=== PATIENT | male | born 1960 | race Caucasian/White ===

== ENCOUNTER → 2024-11-15 | Outpatient (CLI) | payer OTHER ==
--- NOTE | 2024-11-15 11:52 | CTL ---
EXAMINATION TYPE: CT Low Dose Lung DATE OF EXAM: 11/15/2024 11:10 AM COMPARISON: None. CLINICAL INDICATION: Male, 64 years old with history of Z12.2 SCREENING F17.210 CURRENT SMOKER; Curre nt smoker, hx of 1/2 PPD x50yrs., history of tobacco use. TECHNIQUE: Multiple axial non-contrast scans were obtained from approximately the lung apices through the upper abdomen. Coronal and sagittal reformatted images were obtained. Low dose technique was uti lized. MIP were created on a separate workstation and submitted for review. CT DLP: 69.0 mGycm, Automated exposure control for dose reduction was used. CT Contrast: Contrast used: None Oral contrast used: None FINDINGS: Lack of intravenous contrast and low dose technique limits the evaluation of the vascular and soft ti ssue structures. LUNGS: No evidence of pulmonary fibrosis. No evidence of focal consolidation, pneumothorax or pleural effusion. Centrilobular emphysema changes. Air cysts in the right lung base noted. Nodules: RUL: None. RML: Intrafissural lymph node series 5 image 46 RLL: Intrafissural lymph node series 5 image 44.. ELVIS: None. LLL: Calcified granuloma series 7 image 45.. AIRWAY: Patent and unremarkable. HEART: Size within normal limits. No significant coronary artery calcifications. MEDIASTINUM: No gross evidence of adenopathy. VASCULATURE: No aortic aneurysm. MUSCULOSKELETAL: No acute osseous abnormalities SOFT TISSUES/LYMPH NODES: Unremarkable. LOWER NECK: No significant findings. UPPER ABDOMEN: No significant findings. IMPRESSION: 1. No clinically significant pulmonary nodules. 2. Mild emphysema. CT LUNG RAD AND CT CHEST RECOMMENDATION: Lung-Rad 2 Benign Appearance or Behavior: Continue annual sc reening with LDCT in 12 months. S Modifier (other clinically significant findings): None Recommend smoking cessation (if current smoker), or continuation of smoking cessation (if prior smoke r). Annual screening for lung cancer with low-dose computed tomography is recommended in adults ages 55 to 77 years who have a 30 pack-year smoking history and currently smoke or have quit within the pa st 15 years. Screening should be discontinued once a person has not smoked for 15 years or develops a health problem that substantially limits life expectancy or the ability or willingness to have curat ruth lung surgery. Lung rads 2021 [email or web address] [facility], , 11/15/2024 11:49 AM
== END | disposition home or self-care (01) ==
LOC: RADCTMAIN 10:38
PROVIDERS: ATTEND Internal Medicine Pulmonary Disease
DX: Z12.2 Encounter for screening for malignant neoplasm of respiratory organs (principal); F17.210 Nicotine dependence, cigarettes, uncomplicated; J43.2 Centrilobular emphysema
CPT/HCPCS: 71271

== ENCOUNTER → 2024-12-09 | Outpatient (CLI) | payer OTHER ==
--- NOTE | 2024-12-09 16:16 | US ---
EXAMINATION TYPE: US thyroid st tissue head/neck DATE OF EXAM: 12/09/2024 COMPARISON: EXAMINATION TYPE: US thyroid st tissue head/neck DATE OF EXAM: 12/09/2024 COMPARISON: NONE CLINICAL INDICATION: Male, 64 years old with history of R22.1LOCALIZED SWELLING, MASS AND LUMP, NECK; Lump posterior neck left side. TECHNIQUE: Multiple grayscale and color Doppler ultrasound images of the posterior left neck subcuta neous tissues were obtained. FINDINGS/IMPRESSION: Well-circumscribed cystic lesion with posterior acoustic enhancement and interna l complexity identified within the left posterior neck subcutaneous tissues at site of palpable abnor mality. This measures 0.8 x 0.6 x 0.9 cm. Approximately 2 to 3 mm from the skin surface. No tract to the skin surface identified. No internal color flow. Probable epidermoid inclusion cyst. [facility], , 12/09/2024 4:14 PM
== END | disposition home or self-care (01) ==
LOC: RADUSWWP 15:19
PROVIDERS: ATTEND Internal Medicine
DX: E07.89 Other specified disorders of thyroid (principal)
CPT/HCPCS: 76536